=== PATIENT | female | born 1960 | race Caucasian/White ===

== ENCOUNTER 2018-10-09 05:44 | Inpatient (IN) ==
[2018-10-02 13:00] LABS: Basophils % 0.6 % (0.0-0.8); Eosinophils # 0.1 10*3/uL (0.0-0.87); Eosinophils % 2.8 % (0.00-10.9); Hematocrit 39.4 VOL% (35.7-47.0); Hemoglobin 13.1 GM/DL (12.0-16.0); Immature Granulocytes % 0.2 %; Immature Granulocytes Absolute 0.01 #; Lymphocytes # 2.1 10*3/uL (1.4-4.0); Lymphocytes % 41.5 % (21.3-54.2); Mean Corpuscular HGB Conc 33.2 GM/DL (32-36); Mean Corpuscular Volume 96.6 FL (87-102); Mean Platelet Volume 8.8 FL (9.6-12.0); Monocytes % 5.9 % (1.7-12.7); Platelet Count 259 T/CUMM (130-400); Red Blood Count 4.08 MC/CUMM (3.8-5.5); Red Cell Distribution Width 12.4 % (9.3-17.3); White Blood Count 4.9 T/CUMM (4-12)
[2018-10-02 13:38] LABS: Calcium 8.5 MG/DL (8.5-10.1); Osmolality,Calculated 265.2 MOS/KG (273-304)
[2018-10-09] MEDS ORDERED: CLINDAMYCIN INJ 900 MG in PREMIX 1 EACH IV ONE (06:00)
[2018-10-09] MEDS ORDERED: LACTATED RINGERS 1,000 ML IV SCH (06:30)
[2018-10-09] MEDS ORDERED: cefTRIAXone 1,000 MG VIAL ONE (06:31)
[2018-10-09] MEDS ORDERED: LIDOCAINE 1%/EPI INJ 20 ML VIAL ONE (06:32)
[2018-10-09] MEDS ORDERED: MUPIROCIN 2% OINT 22 GM TUBE TOP ONE (06:32)
[2018-10-09] MEDS ORDERED: CHLORHEXIDINE 0.12% ORAL RINSE 60 ML BOTTLE SWISH/SPIT ONE ×2 (06:32→06:44)
[2018-10-09] MEDS ORDERED: CLINDAMYCIN INJ 50 ML IV ONE (06:44)
[2018-10-09] MEDS: CHLORHEXIDINE 0.12% ORAL RINSE 60 ML BOTTLE SWISH/SPIT SCH ×4 (06:55→20:38)
[2018-10-09 08:07] LABS: Apearance,Urine CLEAR (Clear); Bilirubin,Urine Negative (Negative); Blood, Urine Negative (Negative); Glucose,Urine (UA) Negative (Negative); Ketones,Urine Negative (Negative); Nitrite,Urine Negative (Negative); Protein,Urine Negative; RBC,Urine <1 /HPF (0-4); Squamous Epithelial Cell,Urine Occasional /HPF (0-10); Urine Color Colorless (Yellow); Urine Specific Gravity 1.003 (1.001-1.035); Urine Urobilinogen < 2.0 EU/DL (0.2-1.0); WBC,Urine <1 /HPF (0-6)
[2018-10-09] MEDS ORDERED: BACITRACIN 50,000 UNIT VIAL ONE (08:38)
[2018-10-09] MEDS ORDERED: diphenhydrAMINE 50 MG/1 ML VIAL IV PRN (12:54)
[2018-10-09] MEDS ORDERED: ONDANSETRON 4 MG/2 ML VIAL IV PRN (12:54)
[2018-10-09] MEDS ORDERED: PROPOFOL 1,000 MG/100 ML BOTTLE IV ONE (13:03)
[2018-10-09] MEDS ORDERED: KETOROLAC 30 MG/1 ML VIAL IV PRN (13:05)
[2018-10-09] MEDS: PROPOFOL 1,000 MG/100 ML BOTTLE IV SCH ×3 (13:10→21:05)
[2018-10-09] MEDS ORDERED: PROPOFOL 200 MG/20 ML VIAL IV ONE (13:24)
[2018-10-09] MEDS ORDERED: SEVOFLURANE 1 UNIT/15 MINUTE INH ONE (13:25)
[2018-10-09] MEDS ORDERED: fentaNYL 100 MCG/2 ML VIAL ONE ×2 (13:25→13:28)
[2018-10-09] MEDS ORDERED: MINERAL OIL/PETROLATUM OPH OINT 3.5 GM TUBE ONE (13:26)
[2018-10-09] MEDS ORDERED: MIDAZOLAM 2 MG/2 ML VIAL ONE ×3 (13:26→13:28)
[2018-10-09] MEDS ORDERED: KETAMINE 500 MG/10 ML VIAL ONE (13:26)
[2018-10-09] MEDS ORDERED: SUCCINYLCHOLINE 200 MG/10 ML VIAL ONE (13:27)
[2018-10-09] MEDS ORDERED: SODIUM CHLORIDE 0.9% 250 ML IV ONE (13:27)
[2018-10-09] MEDS ORDERED: ROCURONIUM 100 MG/10 ML VIAL IV ONE (13:27)
[2018-10-09 13:43] LABS: ABG Base Excess 1.1 MMOL/L (-2.5-2.5); ABG HCO3 26.1 MMOL/L (20-26); ABG Oxygen Saturation 99.3 % (95-100); ABG PCO2 42.7 MM HG (35-48); ABG PH 7.404 (7.35-7.45); ABG PO2 229.3 MM HG (80-95); ABG TCO2 27.4 MMOL/L (23-27)
[2018-10-09] MEDS: DEXAMETHASONE 4 MG/1 ML VIAL IV SCH ×2 (14:37→20:37)
[2018-10-09] MEDS: CLINDAMYCIN INJ 900 MG in PREMIX 1 EACH IV SCH ×2 (14:38→21:59)
[2018-10-09] MEDS: LACTATED RINGERS 1,000 ML IV SCH (14:38)
[2018-10-09] MEDS: MUPIROCIN 2% OINT 22 GM TUBE TOP SCH ×2 (14:39→20:37)
[2018-10-09] MEDS: MORPHINE 4 MG/1 ML VIAL IV PRN ×2 (16:09→19:47)
[2018-10-09] MEDS: GLYCOPYRROLATE 0.4 MG/2 ML VIAL IV SCH ×2 (16:59→20:38)
[2018-10-09] MEDS: ALBUTEROL/IPRATROPIUM 3 ML NEB RESP TX SCH (20:05)
[2018-10-10] MEDS: PROPOFOL 1,000 MG/100 ML BOTTLE IV SCH ×2 (00:42→04:10)
[2018-10-10] MEDS: MORPHINE 4 MG/1 ML VIAL IV PRN (02:24)
[2018-10-10] MEDS: LACTATED RINGERS 1,000 ML IV SCH ×2 (03:00→17:51)
[2018-10-10 03:53] LABS: ABG Base Excess 2.5 MMOL/L (-2.5-2.5); ABG HCO3 26.6 MMOL/L (20-26); ABG Oxygen Saturation 99.2 % (95-100); ABG PCO2 39.5 MM HG (35-48); ABG PH 7.446 (7.35-7.45); ABG PO2 206.4 MM HG (80-95); ABG TCO2 27.8 MMOL/L (23-27)
[2018-10-10] MEDS: DEXAMETHASONE 4 MG/1 ML VIAL IV SCH ×3 (05:43→20:20)
[2018-10-10] MEDS: CLINDAMYCIN INJ 900 MG in PREMIX 1 EACH IV SCH ×3 (05:43→22:07)
[2018-10-10] MEDS: ALBUTEROL/IPRATROPIUM 3 ML NEB RESP TX SCH ×4 (07:21→19:20)
[2018-10-10] MEDS: CHLORHEXIDINE 0.12% ORAL RINSE 60 ML BOTTLE SWISH/SPIT SCH ×4 (09:15→20:20)
[2018-10-10] MEDS: GLYCOPYRROLATE 0.4 MG/2 ML VIAL IV SCH ×4 (09:15→20:20)
[2018-10-10] MEDS: MUPIROCIN 2% OINT 22 GM TUBE TOP SCH ×3 (09:16→20:20)
[2018-10-10] MEDS ORDERED: IBUPROFEN 100 MG/5 ML UDCUP PO PRN ×2 (19:01→19:04)
[2018-10-10] MEDS ORDERED: IBUPROFEN 600 MG TABLET PO PRN (19:01)
[2018-10-11 00:45] LABS: Basophils % 0.1 % (0.0-0.8); Hematocrit 32.5 VOL% (35.7-47.0); Hemoglobin 10.9 GM/DL (12.0-16.0); Immature Granulocytes Absolute 0.13 #; Lymphocytes # 0.7 10*3/uL (1.4-4.0); Lymphocytes % 4.8 % (21.3-54.2); Mean Corpuscular HGB Conc 33.5 GM/DL (32-36); Mean Corpuscular Volume 95.9 FL (87-102); Mean Platelet Volume 9.3 FL (9.6-12.0); Monocytes % 3.3 % (1.7-12.7); Neutrophils % 90.8 % (38.7-73.9); Platelet Count 252 T/CUMM (130-400); Red Blood Count 3.39 MC/CUMM (3.8-5.5); Red Cell Distribution Width 13.2 % (9.3-17.3); White Blood Count 13.7 T/CUMM (4-12)
[2018-10-11 01:05] LABS: Calcium 7.9 MG/DL (8.5-10.1); Osmolality,Calculated 282.3 MOS/KG (273-304)
[2018-10-11 01:11] LABS: Band Neutrophils 3 % (0-10); Lymphocytes 4 % (20-55); Segmented Neutrophils 91 % (50-85); Total Cells Counted 100
[2018-10-11 01:12] LABS: Hypochromasia Slight; Platelet Estimate Normal
[2018-10-11] MEDS: ALBUTEROL/IPRATROPIUM 3 ML NEB RESP TX SCH ×2 (01:13→07:30)
[2018-10-11] MEDS: LACTATED RINGERS 1,000 ML IV SCH ×3 (03:53→18:02)
[2018-10-11] MEDS: DEXAMETHASONE 4 MG/1 ML VIAL IV SCH ×2 (05:54→13:58)
[2018-10-11] MEDS: CLINDAMYCIN INJ 900 MG in PREMIX 1 EACH IV SCH ×2 (05:54→13:58)
[2018-10-11] MEDS ORDERED: HEPARIN/NACL 0.9% 2 UNITS/ML 500 ML IV ONE (06:55)
[2018-10-11] MEDS ORDERED: PHENYLEPHRINE 0.5% NASAL SPRAY 15 ML BOTTLE BOTH NARES ONE (06:55)
[2018-10-11] MEDS: MUPIROCIN 2% OINT 22 GM TUBE TOP SCH ×2 (08:50→14:01)
[2018-10-11] MEDS: GLYCOPYRROLATE 0.4 MG/2 ML VIAL IV SCH ×3 (08:50→17:59)
[2018-10-11] MEDS: CHLORHEXIDINE 0.12% ORAL RINSE 60 ML BOTTLE SWISH/SPIT SCH ×3 (09:52→17:58)
[2018-10-11] MEDS ORDERED: ALBUTEROL/IPRATROPIUM 3 ML NEB RESP TX PRN (11:00)
[2018-10-11 12:48] VITALS: BP 126/79
== END 2018-10-11 17:58 | disposition home or self-care (01) | DRG 130 ==
LOC: N.OR 05:44 → N.SDSINP 05:44 → N.ICU 12:54
PROVIDERS: ADMIT Otolaryngology; ATTEND Otolaryngology

== ENCOUNTER 2018-10-13 05:57 | Inpatient (IN) ==
[2018-10-13] MEDS ORDERED: DEXAMETHASONE 4 MG/1 ML VIAL IV STA (06:24)
[2018-10-13] MEDS ORDERED: SODIUM CHLORIDE 0.9% 1,000 ML IV STA (06:24)
[2018-10-13] MEDS ORDERED: ONDANSETRON 4 MG/2 ML VIAL IV PRN (06:39)
[2018-10-13] MEDS ORDERED: IBUPROFEN 100 MG/5 ML UDCUP PO PRN (06:44)
[2018-10-13 06:52] LABS: Basophils % 0.1 % (0.0-0.8); Eosinophils # 0.1 10*3/uL (0.0-0.87); Eosinophils % 0.7 % (0.00-10.9); Hematocrit 38.4 VOL% (35.7-47.0); Hemoglobin 12.5 GM/DL (12.0-16.0); Immature Granulocytes % 0.6 %; Immature Granulocytes Absolute 0.06 #; Lymphocytes % 20.9 % (21.3-54.2); Mean Corpuscular HGB Conc 32.6 GM/DL (32-36); Mean Corpuscular Volume 96.7 FL (87-102); Monocytes % 6.9 % (1.7-12.7); Neutrophils % 70.8 % (38.7-73.9); Platelet Count 283 T/CUMM (130-400); Red Blood Count 3.97 MC/CUMM (3.8-5.5); Red Cell Distribution Width 12.9 % (9.3-17.3); White Blood Count 9.3 T/CUMM (4-12)
[2018-10-13] MEDS: DEXAMETHASONE 4 MG/1 ML VIAL IV SCH ×3 (07:08→18:09)
[2018-10-13] MEDS: SODIUM CHLORIDE 0.9% 1,000 ML IV SCH ×3 (07:08→18:38)
[2018-10-13 07:18] LABS: Calcium 8.6 MG/DL (8.5-10.1); Osmolality,Calculated 273.5 MOS/KG (273-304)
[2018-10-13] MEDS ORDERED: KETOROLAC 30 MG/1 ML VIAL IV STA (07:19)
[2018-10-13] MEDS ORDERED: KETOROLAC 30 MG/1 ML VIAL ONE (07:20)
[2018-10-13] MEDS: ENOXAPARIN 40 MG/0.4 ML SYRINGE SUBCUT SCH (07:38)
[2018-10-13] MEDS ORDERED: CLINDAMYCIN 15 MG/ML 100 ML/BOTTLE PO SCH (09:00)
[2018-10-13] MEDS: CHLORHEXIDINE 0.12% ORAL RINSE 60 ML BOTTLE SWISH/SPIT SCH ×4 (09:22→20:36)
[2018-10-13] MEDS ORDERED: MORPHINE 4 MG/1 ML VIAL IV PRN (09:25)
[2018-10-13] MEDS ORDERED: KETOROLAC 30 MG/1 ML VIAL IV PRN (09:25)
[2018-10-13] MEDS: CLINDAMYCIN INJ 900 MG in PREMIX 1 EACH IV SCH ×3 (11:13→22:13)
[2018-10-13] MEDS: HYDROcod/ACETAMIN 7.5-325 MG/15 ML UDCUP PO PRN (16:49)
[2018-10-14] MEDS: DEXAMETHASONE 4 MG/1 ML VIAL IV SCH ×3 (00:13→13:51)
[2018-10-14] MEDS: CLINDAMYCIN INJ 900 MG in PREMIX 1 EACH IV SCH ×2 (03:55→09:38)
[2018-10-14] MEDS: SODIUM CHLORIDE 0.9% 1,000 ML IV SCH ×2 (03:55→16:10)
[2018-10-14] MEDS: CHLORHEXIDINE 0.12% ORAL RINSE 60 ML BOTTLE SWISH/SPIT SCH ×2 (09:40→16:10)
[2018-10-14] MEDS: ENOXAPARIN 40 MG/0.4 ML SYRINGE SUBCUT SCH (09:40)
[2018-10-14 13:36] VITALS: BP 121/67
[2018-10-14] MEDS: HYDROcod/ACETAMIN 7.5-325 MG/15 ML UDCUP PO PRN (13:54)
== END 2018-10-14 14:20 | disposition home or self-care (01) | DRG 916 ==
LOC: N.ED 05:57 → N.EDINP 06:39 → N.2E 08:20
PROVIDERS: ADMIT Otolaryngology; ATTEND Otolaryngology